=== PATIENT | male | born 1965 | race Caucasian/White ===

== ENCOUNTER 2018-08-04 20:10 | Emergency (ER) | payer OTHER ==
--- NOTE | 2018-08-04 20:51 | EDM.PDOC ---
ED HPI GENERAL MEDICAL PROBLEM - General Chief Complaint: Cardiovascular Problem Stated Complaint: IRREGULAR HEARTBEAT/ANXIETY Time Seen by Provider: 08/04/18 20:40 Source of Information: Reports: Patient History Limitations: Reports: No Limitations - History of Present Illness INITIAL COMMENTS - FREE TEXT/NARRATIVE: 52-year-old male with an irregular heartbeat for the past 2 hours. Symptoms started after his evening meal. He had a similar episode Thursday, on Thursday morning when he woke he was fine and all day yesterday and today he had no symptoms. He has not seen a doctor in over 2 years. He was hospitalized 3 years ago in [place] with what sounds like atrial fibrillation but did not receive cardioversion, was discharged on a medication that another doctor later stopped. He later wore a Holter monitor for 3 days which was normal and had an echocardiogram which he was also told was fine. He has no chest pain or shortness of breath, just an uncomfortable feeling of palpitations and irregular heartbeat. He did get winded when active on Thursday when he was having palpitations, but no symptoms yesterday. He is on no medications, does not drink alcohol and is on no [id number] medications, no extra coffee. Onset: Sudden Duration: Hour(s): Associated Symptoms: Reports: Shortness of Breath (With activity while having palpitations 2 days ago) - Related Data Allergies Allergy/AdvReac Type Severity Reaction Status Date / Time No Known Allergies Allergy Verified 08/04/18 20:28 Home Meds: Home Meds NK [No Known Home Meds] 08/04/18 [History] Past Medical History Musculoskeletal History: Reports: Fracture - Past Surgical History GI Surgical History: Reports: Appendectomy Social & Family History - Caffeine Use Caffeine Use: Reports: Coffee - Recreational Drug Use Recreational Drug Use: No ED ROS GENERAL - Review of Systems Review Of Systems: See Below Constitutional: Denies: Fever, Chills HEENT: Reports: No Symptoms Respiratory: Reports: Shortness of Breath (With activity) Cardiovascular: Reports: Palpitations. Denies: Chest Pain GI/Abdominal: Denies: Abdominal Pain, Nausea, Vomiting : Reports: No Symptoms Musculoskeletal: Reports: No Symptoms Skin: Reports: No Symptoms Neurological: Reports: No Symptoms Psychiatric: Reports: No Symptoms ED EXAM, GENERAL - Physical Exam Exam: See Below Exam Limited By: No Limitations General Appearance: Alert, No Apparent Distress Eye Exam: Bilateral Eye: Normal Inspection Head: Atraumatic Respiratory/Chest: No Respiratory Distress, Lungs Clear Cardiovascular: No Murmur, Irregularly Irregular GI/Abdominal: Soft, Non-Tender Extremities: Normal Inspection. No: Pedal Edema Neurological: Alert, Oriented Psychiatric: Normal Affect, Normal Mood Skin Exam: Warm, Dry EKG INTERPRETATION EKG Date: 08/04/18 Rhythm: A-Fib Rate (Beats/Min): 94 ST-T: Normal Course - Vital Signs Last Recorded V/S: Last Vital Signs Temp 97.7 F 08/04/18 20:36 Pulse 79 08/04/18 21:56 Resp 9 L 08/04/18 21:56 BP 137/91 H 08/04/18 21:56 Pulse Ox 96 08/04/18 21:56 - Orders/Labs/Meds Orders: Active Orders 24 hr Category Date Time Status EKG Documentation Completion [RC] ASDIRECTED Care 08/04/18 22:23 Active EKG 12 Lead [EK] Routine Ther 08/04/18 22:23 Ordered Labs: Laboratory Tests 08/04/18 08/04/18 Range/Units 21:15 21:15 WBC 12.1 H (4.5-11.0) K/uL RBC 5.24 (4.30-5.90) M/uL Hgb 16.2 H (12.0-15.0) g/dL Hct 46.9 (40.0-54.0) % MCV 90 (80-98) fL MCH 31 (27-31) pg MCHC 35 (32-36) % Plt Count 196 (150-400) K/uL Neut % (Auto) 67 H (36-66) % Lymph % (Auto) 23 L (24-44) % Gilchrist % (Auto) 10 H (2-6) % Eos % (Auto) 0 L (2-4) % Baso % (Auto) 0 (0-1) % Sodium 142 (140-148) mmol/L Potassium 3.9 (3.6-5.2) mmol/L Chloride 107 (100-108) mmol/L Carbon Dioxide 23 (21-32) mmol/L Anion Gap 12.0 (5.0-14.0) mmol/L BUN 21 H (7-18) mg/dL Creatinine 1.0 (0.8-1.3) mg/dL Est Cr Clr Drug Dosing 94.13 mL/min Estimated GFR (MDRD) > 60 (>60) Glucose 122 H (74-106) mg/dL Calcium 9.3 (8.5-10.1) mg/dL Total Bilirubin 0.4 (0.2-1.0) mg/dL AST 25 (15-37) U/L ALT 49 (12-78) U/L Alkaline Phosphatase 66 (46-116) U/L Troponin I < 0.017 (0.000-0.056) ng/mL Total Protein 7.2 (6.4-8.2) g/dL Albumin 3.7 (3.4-5.0) g/dL Globulin 3.5 (2.3-3.5) g/dL Albumin/Globulin Ratio 1.1 L (1.2-2.2) Meds: Medications Discontinued Medications Generic Name Dose Route Start Last Admin Trade Name Freq PRN Reason Stop Dose Admin Diltiazem HCl 180 mg 08/04/18 20:58 08/04/18 21:15 Cardizem Cd PO 08/04/18 20:59 180 mg ONETIME ONE Administration - Re-Assessments/Exams Free Text/Narrative Re-Assessment/Exam: 08/04/18 22:09 Patient was monitored for an hour and a half, given 180 mg of oral Cardizem, a CBC CMP and troponin were obtained. We were able to locate his discharge summary from his hospitalization in 2014 when he had atrial fibrillation. This did confirm a normal echocardiogram, however he was discharged apparently still in atrial fibrillation but his follow-up visit he was in sinus rhythm. His labs were reassuring, troponin was negative. He will recheck tomorrow morning between 8 and 9:00 to see if he converts to normal sinus rhythm. Departure - Departure Time of Disposition: 22:24 Disposition: Home, Self-Care 01 Condition: Good Clinical Impression: Atrial fibrillation Qualifiers: Atrial fibrillation type: paroxysmal Qualified Code(s): I48.0 - Paroxysmal atrial fibrillation Instructions: Atrial Fibrillation, [id number] Referrals: PCP,None [Primary Care Provider] - Forms: ED Department Discharge Care Plan Goals: Return tomorrow morning around 8:00 to recheck your heart rhythm. You can return sooner if worsening such as increased pain or shortness of breath. - My Orders Last 24 Hours: My Active Orders 08/04/18 22:23 EKG Documentation Completion [RC] ASDIRECTED EKG 12 Lead [EK] Routine - Assessment/Plan Last 24 Hours: My Active Orders 08/04/18 22:23 EKG Documentation Completion [RC] ASDIRECTED EKG 12 Lead [EK] Routine
[2018-08-04] MEDS: Diltiazem 180 MG Cap.CD PO ONE (21:15)
== END 2018-08-04 22:26 | disposition home or self-care (01) ==
LOC: JP.ED 20:10
DX: I48.0 Paroxysmal atrial fibrillation (principal); Z90.49 Acquired absence of other specified parts of digestive tract
CPT/HCPCS: 36415; 80053; 84484; 85025; 93005; 99285; A9270

== ENCOUNTER 2018-08-05 08:24 | Emergency (ER) | payer OTHER ==
--- NOTE | 2018-08-05 10:04 | EDM.PDOC ---
ED HPI GENERAL MEDICAL PROBLEM - General Chief Complaint: Cardiovascular Problem Stated Complaint: RECHECK A-FIB Time Seen by Provider: 08/05/18 09:58 Source of Information: Reports: Patient History Limitations: Reports: No Limitations - History of Present Illness INITIAL COMMENTS - FREE TEXT/NARRATIVE: pt returns for a recheck and has persistent atrial fib. He took cardizem and did not convert. He has had no chest pain or distress. His rate has been fairly good according to the pt. Onset: Other ( started yesterday. ) Duration: Hour(s): Location: Reports: Chest Associated Symptoms: Reports: No Other Symptoms, Other (pt still feels that his rhythm is irregular. ) - Related Data Allergies Allergy/AdvReac Type Severity Reaction Status Date / Time No Known Allergies Allergy Verified 08/05/18 09:14 Home Meds: Home Meds NK [No Known Home Meds] 08/04/18 [History] Past Medical History Cardiovascular History: Reports: Arrhythmia Respiratory History: Reports: Other (See Below) Other Respiratory History: bacterial lung from working in [place] Gastrointestinal History: Reports: None Musculoskeletal History: Reports: Fracture Endocrine/Metabolic History: Reports: Obesity/BMI 30+ - Infectious Disease History Infectious Disease History: Reports: Chicken Pox - Past Surgical History Head Surgeries/Procedures: Reports: None Cardiovascular Surgical History: Reports: None Respiratory Surgical History: Reports: None GI Surgical History: Reports: Appendectomy Endocrine Surgical History: Reports: None Musculoskeletal Surgical History: Reports: None Social & Family History - Tobacco Use Smoking Status *Q: Former Smoker Used Tobacco, but Quit: Yes Month/Year Tobacco Last Used: 2013 Second Hand Smoke Exposure: No - Caffeine Use Caffeine Use: Reports: Coffee - Recreational Drug Use Recreational Drug Use: No ED ROS GENERAL - Review of Systems Review Of Systems: See Below Constitutional: Reports: No Symptoms HEENT: Reports: No Symptoms Respiratory: Reports: No Symptoms Cardiovascular: Reports: Palpitations Endocrine: Reports: No Symptoms GI/Abdominal: Reports: No Symptoms : Reports: No Symptoms Musculoskeletal: Reports: No Symptoms Skin: Reports: No Symptoms Neurological: Reports: No Symptoms ED EXAM, GENERAL - Physical Exam Exam: See Below Free Text/Narrative:: pt arrived with a irregular rhythm--atrial fib which is persistent. He is comfortable and vitals are good. Exam Limited By: No Limitations General Appearance: Alert, No Apparent Distress Ears: Normal TMs Nose: Normal Inspection Throat/Mouth: Normal Inspection Head: Atraumatic Neck: Normal Inspection Respiratory/Chest: No Respiratory Distress Cardiovascular: Irregularly Irregular, Other (pt is in persistent atrial fib. ) GI/Abdominal: Soft, Non-Tender (Male) Exam: Deferred Rectal (Males) Exam: Deferred Back Exam: Normal Inspection Extremities: Normal Inspection Neurological: Alert, Oriented Psychiatric: Normal Affect Course - Vital Signs Last Recorded V/S: Last Vital Signs Temp 35.1 C L 08/05/18 09:14 Pulse 76 08/05/18 11:33 Resp 14 08/05/18 11:33 BP 138/87 08/05/18 11:33 Pulse Ox 97 08/05/18 11:33 - Orders/Labs/Meds Orders: Active Orders 24 hr Category Date Time Status EKG Documentation Completion [RC] ASDIRECTED Care 08/05/18 09:24 Active Nicotine [Habitrol] Med 08/05/18 13:11 Once 21 mg TRDERM ONETIME ONE EKG 12 Lead [EK] Routine Ther 08/05/18 09:24 Ordered Meds: Medications Discontinued Medications Generic Name Dose Route Start Last Admin Trade Name Jerardo PRN Reason Stop Dose Admin Propofol Confirm 08/05/18 12:11 Diprivan 20 Ml Administered 08/05/18 12:12 Dose 200 mg .ROUTE .STK-MED ONE - Re-Assessments/Exams Free Text/Narrative Re-Assessment/Exam: 08/05/18 10:06 ekg shows a persistent atrial fib. 08/05/18 13:09 Dr Becker tried to cardiovert him twice and it did convert briefly but then went back into a atrial fib. Departure - Departure Time of Disposition: 13:12 Disposition: Home, Self-Care 01 Condition: Fair Clinical Impression: Atrial fibrillation Qualifiers: Atrial fibrillation type: paroxysmal Qualified Code(s): I48.0 - Paroxysmal atrial fibrillation Referrals: PCP,None [Primary Care Provider] - Forms: ED Department Discharge Care Plan [facility]als[facility] [place] [facility] a [facility], asa 81 mg daily, cardiozem 120mg CD 1 tab daily, rtc if any problems. - My Orders Last 24 Hours: My Active Orders 08/05/18 09:24 EKG Documentation Completion [RC] ASDIRECTED EKG 12 Lead [EK] Routine 08/05/18 13:11 Nicotine [Habitrol] 21 mg TRDERM ONETIME ONE - Assessment/Plan Last 24 Hours: My Active Orders 08/05/18 09:24 EKG Documentation Completion [RC] ASDIRECTED EKG 12 Lead [EK] Routine 08/05/18 13:11 Nicotine [Habitrol] 21 mg TRDERM ONETIME ONE
[2018-08-05] MEDS ORDERED: Propofol 200 MG/20 ML SDV ONE (12:11)
--- NOTE | 2018-08-05 12:41 | PCM.CONS ---
H&P History of Present Illness - General Date of Service: 08/05/18 Source of Information: Patient, Provider, RN Notes Reviewed History Limitations: Reports: No Limitations - History of Present Illness Initial Comments - Free Text/Narative: Mr. Pham is a 52-year-old gentleman who I been asked to see by Dr. Albarran for recommendations concerning evaluation and management of atrial fibrillation. He presented to the emergency department last night with atrial fibrillation and rapid ventricular response. He has had a previous episode of atrial fibrillation occurring approximately 3 years ago that converted spontaneously. Since then he estimates that he is had 5-6 episodes that occurred over the past 3 years all of which have resolved spontaneously within 24 hours. 2 days prior to presenting to the emergency department he had an episode of irregular heart rhythm that lasted approximately 16 hours and resolved spontaneously. He noted onset of recurrent irregular rhythm last night and presented to the emergency department for further evaluation. Heart rate was in the low 100s to 90s. He was tolerating it fairly well but had eaten supper and was not a candidate for cardioversion at that time. He was given 1 dose of diltiazem CD 120 mg and discharged home. He was instructed to come back to the emergency department this morning having been nothing by mouth since midnight. Labs reviewed from initial evaluation last night and are within desired range. EKGs were reviewed and show evidence of atrial fibrillation with controlled ventricular response from this morning. We discussed options for management including conservative management with rate control and possible anticoagulation versus electrical cardioversion. He decided to proceed with cardioversion. After adequate sedation was achieved 2 attempts at cardioversion were performed initially using 200 J of energy and the second using 300 J of energy, both in synchronized mode. Each attempt was successful in transient conversion to sinus rhythm but he quickly went back into atrial fibrillation after each attempt. - Related Data Allergies/Adverse Reactions: Allergies Allergy/AdvReac Type Severity Reaction Status Date / Time No Known Allergies Allergy Verified 08/05/18 09:14 Home Medications: Home Meds NK [No Known Home Meds] 08/04/18 [History] Past Medical History Cardiovascular History: Reports: Arrhythmia Respiratory History: Reports: Other (See Below) Other Respiratory History: bacterial lung from working in [place] Gastrointestinal History: Reports: None Musculoskeletal History: Reports: Fracture Endocrine/Metabolic History: Reports: Obesity/BMI 30+ - Infectious Disease History Infectious Disease History: Reports: Chicken Pox - Past Surgical History Head Surgeries/Procedures: Reports: None Cardiovascular Surgical History: Reports: None Respiratory Surgical History: Reports: None GI Surgical History: Reports: Appendectomy Endocrine Surgical History: Reports: None Musculoskeletal Surgical History: Reports: None Social & Family History - Tobacco Use Smoking Status *Q: Former Smoker Used Tobacco, but Quit: Yes Month/Year Tobacco Last Used: 2013 Second Hand Smoke Exposure: No - Caffeine Use Caffeine Use: Reports: Coffee - Recreational Drug Use Recreational Drug Use: No H&P Review of Systems - Review of Systems: Review Of Systems: See Below General: Denies: Fever, Chills, Weakness Pulmonary: Reports: No Symptoms Cardiovascular: Reports: Palpitations, Lightheadedness. Denies: Chest Pain, Dyspnea on Exertion, Orthopnea, PND, Edema, Syncope Gastrointestinal: Reports: No Symptoms Musculoskeletal: Reports: No Symptoms Exam - Exam Exam: See Below - Vital Signs Vital Signs: Last Vital Signs Temp 95.2 F L 08/05/18 09:14 Pulse 76 08/05/18 11:33 Resp 14 08/05/18 11:33 BP 138/87 08/05/18 11:33 Pulse Ox 97 08/05/18 11:33 Weight: 233 lb 11.04 oz - Exam General: Alert, Oriented, Cooperative, Mild Distress Neck: Supple, Trachea Midline, +2 Carotid Pulse wo Bruit Lungs: Clear to Auscultation, Normal Respiratory Effort Cardiovascular: Regular Rate, Normal S1, Normal S2, Irregular Rhythm. No: Systolic Murmur, Diastolic Murmur GI/Abdominal Exam: Soft, Non-Tender, No Organomegaly, No Distention Extremities: Non-Tender, No Pedal Edema Consult PN Assessment/Plan Problem List Initiated/Reviewed/Updated: Yes Plan: ASSESSMENT AND RECOMMENDATIONS ATRIAL FIBRILLATION-first episode occurred approximately 3 years ago, with brief hospitalization and spontaneous conversion to sinus rhythm. Since then he' s experienced 5-6 episodes that all have converted spontaneously and lasted less than 24 hours. Most recent episode prior to this one was 2 days ago and resolved spontaneously after approximately 16 hours. He presented to the emergency department last night with atrial fibrillation and rapid ventricular response, heart rates in the low 100s. He had had his evening meal and was not felt to be a candidate for cardioversion at that time. He was given oral dose of diltiazem CD 120 mg and discharged home. Heart rate is under better control at this point in the 70s and 80s but remains in atrial fibrillation. He has had nothing to eat since midnight and after discussion of options agreed to proceed with attempted electrical cardioversion. 2 attempts were made at cardioversion which were both unsuccessful for sustained conversion to sinus rhythm. His [id number] score is 1. -Hold on anticoagulation because of [id number] score of 1 -Aspirin 81 mg by mouth daily -Continue diltiazem CD 120 mg by mouth daily -Outpatient cardiology appointment in [place], [place] HYPERTENSION-pressure consistently elevated during both emergency room visits -Long acting diltiazem as above Requesting Provider: Yadiel Date Consult Requested: 08/05/18 Reason for Consult: Paroxysmal atrial fibrillation Patient History Reviewed: Yes Notified Requestor: Yes
[2018-08-05] MEDS ORDERED: Nicotine 21 MG/24 Hr Patch TRDERM ONE (13:11)
--- NOTE | 2018-08-05 13:40 | PCM.OPNOTE ---
- General Post-Op/Procedure Note Date of Surgery/Procedure: 08/05/18 Operative Procedure(s): Elective electrical cardioversion Pre Op Diagnosis: Atrial fibrillation with rapid ventricular response Post-Op Diagnosis: Same Anesthesia Technique: Moderate Sedation Primary Surgeon: Zeyad Becker Anesthesia Provider: Zeyad Collins Complications: None Condition: Good Free Text/Narrative:: Mr. Pham is a 52-year-old gentleman who presented to the emergency department last night with atrial fibrillation and rapid ventricular response. He has had a previous episode of atrial fibrillation occurring approximately 3 years ago that converted spontaneously. Since then he estimates that he is had 5-6 episodes that occurred over the past 3 years all of which have resolved spontaneously within 24 hours. 2 days prior to presenting to the emergency department he had an episode of irregular heart rhythm that lasted approximately 16 hours and resolved spontaneously. He noted onset of recurrent irregular rhythm last night and presented to the emergency department for further evaluation. Heart rate was in the low 100s to 90s. He was tolerating it fairly well but had eaten supper and was not a candidate for cardioversion at that time. He was instructed to come back to the emergency department this morning having been nothing by mouth since midnight. Labs reviewed from initial evaluation last night and are within desired range. We discussed options for management including conservative management with rate control and possible anticoagulation. He has decided to proceed with electrical cardioversion, risks and goals of this procedure were reviewed with him. After adequate sedation was achieved and provided by anesthesia service. Initial attempt at cardioversion was made using 200 J of energy delivered in a synchronized fashion. He did have a few beats of sinus rhythm but quickly went back into atrial fibrillation. A second attempted cardioversion was made using 300 J of energy again synchronized, this was transiently successful in conversion to sinus rhythm with a few beats of sinus rhythm noted again before he went back into atrial fibrillation. Procedure was terminated this point and he was recovered in the emergency department from his IV sedation.
== END 2018-08-05 13:30 | disposition home or self-care (01) ==
LOC: JP.ED 08:24
DX: I48.0 Paroxysmal atrial fibrillation (principal); Z87.891 Personal history of nicotine dependence
CPT/HCPCS: 92960; 93005; 99285; J2704; 93010

== ENCOUNTER 2018-08-08 22:29 | Emergency (ER) | payer OTHER ==
--- NOTE | 2018-08-09 01:26 | EDM.PDOC ---
ED HPI GENERAL MEDICAL PROBLEM - General Chief Complaint: General Stated Complaint: LIGHT HEADED SOMEWHAT DIZZY Time Seen by Provider: 08/08/18 23:32 Source of Information: Reports: Patient History Limitations: Reports: No Limitations - History of Present Illness INITIAL COMMENTS - FREE TEXT/NARRATIVE: This patient comes in for feeling weak and a little bit dizzy and off balance. Denies any vertigo denies near syncope. No nausea he is able to walk okay he was sitting that a few days ago in our ER for an episode of atrial fibrillation. He was put on extended release diltiazem and discharged. He was brought back the following day for recheck he was still in atrial fibrillation he under went an elective cardioversion. He was easily converted but then relapsed into atrial fibrillation both times. The FADIA-Vasc assessment score was 1 so he was sent home without anticoagulation and plans are him to follow- up with cardiology. He continues to take diltiazem ER 120 mg daily. denies pain Pain Score (Numeric/FACES): 0 - Related Data Allergies Allergy/AdvReac Type Severity Reaction Status Date / Time No Known Allergies Allergy Verified 08/08/18 22:52 Home Meds: Home Meds Diltiazem HCl [Cartia Xt] 120 mg PO DAILY 08/08/18 [History] Past Medical History Cardiovascular History: Reports: Arrhythmia Respiratory History: Reports: Other (See Below) Other Respiratory History: bacterial lung from working in [place] Gastrointestinal History: Reports: None Musculoskeletal History: Reports: Fracture Endocrine/Metabolic History: Reports: Obesity/BMI 30+ - Infectious Disease History Infectious Disease History: Reports: Chicken Pox - Past Surgical History Head Surgeries/Procedures: Reports: None GI Surgical History: Reports: Appendectomy Social & Family History - Tobacco Use Smoking Status *Q: Former Smoker Used Tobacco, but Quit: Yes Month/Year Tobacco Last Used: 2004 - Caffeine Use Caffeine Use: Reports: Coffee - Recreational Drug Use Recreational Drug Use: No ED ROS GENERAL - Review of Systems Review Of Systems: See Below Constitutional: Reports: Weakness HEENT: Reports: No Symptoms Respiratory: Reports: No Symptoms Cardiovascular: Denies: Chest Pain, Blood Pressure Problem, Dyspnea on Exertion , Palpitations Endocrine: Reports: No Symptoms GI/Abdominal: Reports: No Symptoms : Reports: No Symptoms Musculoskeletal: Reports: No Symptoms Skin: Reports: No Symptoms Neurological: Reports: No Symptoms Psychiatric: Reports: No Symptoms Hematologic/Lymphatic: Reports: No Symptoms ED EXAM, GENERAL - Physical Exam Exam: See Below Exam Limited By: No Limitations General Appearance: Alert, WD/WN, No Apparent Distress Eye Exam: Bilateral Eye: Normal Inspection Nose: Normal Inspection Throat/Mouth: Normal Oropharynx Head: Atraumatic Neck: Normal Inspection Respiratory/Chest: No Respiratory Distress Cardiovascular: Normal Peripheral Pulses, Regular Rate, Rhythm, Bradycardia GI/Abdominal: Soft, Non-Tender Back Exam: Normal Inspection Extremities: Normal Inspection Neurological: Alert, Oriented Course - Vital Signs Last Recorded V/S: Last Vital Signs Temp 36.0 C 08/08/18 22:55 Pulse 59 L 08/08/18 22:55 Resp 14 08/08/18 22:55 BP 148/105 H 08/08/18 22:55 Pulse Ox 98 08/08/18 22:55 - Orders/Labs/Meds Orders: Active Orders 24 hr Category Date Time Status EKG Documentation Completion [RC] ASDIRECTED Care 08/08/18 23:44 Active EKG 12 Lead [EK] Urgent Ther 08/08/18 23:44 Ordered Labs: Laboratory Tests 08/09/18 08/09/18 Range/Units 00:29 00:29 WBC 10.9 (4.5-11.0) K/uL RBC 4.92 (4.30-5.90) M/uL Hgb 15.4 H (12.0-15.0) g/dL Hct 44.3 (40.0-54.0) % MCV 90 (80-98) fL MCH 31 (27-31) pg MCHC 35 (32-36) % Plt Count 191 (150-400) K/uL Neut % (Auto) 57 (36-66) % Lymph % (Auto) 31 (24-44) % Sutton % (Auto) 11 H (2-6) % Eos % (Auto) 1 L (2-4) % Baso % (Auto) 0 (0-1) % Sodium 139 L (140-148) mmol/L Potassium 4.0 (3.6-5.2) mmol/L Chloride 104 (100-108) mmol/L Carbon Dioxide 24 (21-32) mmol/L Anion Gap 15.0 H (5.0-14.0) mmol/L BUN 18 (7-18) mg/dL Creatinine 0.8 (0.8-1.3) mg/dL Est Cr Clr Drug Dosing 106.88 mL/min Estimated GFR (MDRD) > 60 (>60) Glucose 97 (74-106) mg/dL Calcium 9.3 (8.5-10.1) mg/dL Troponin I < 0.017 (0.000-0.056) ng/mL - Re-Assessments/Exams Free Text/Narrative Re-Assessment/Exam: 08/09/18 07:19 EKG shows sinus bradycardia at 52 bpm otherwise normal QRS normal ST and T waves. Monitor shows sinus bradycardia as low as 48 bpm Labs were reviewed on this patient nothing that indicates any type of major cardiac event. The problem appears to be due just from overmedication causing her bradycardia. Plan will be to switch to a lower dose Cardizem tomorrow 60 mg daily family can follow up with gas and oil checker Departure - Departure Time of Disposition: 01:23 Disposition: Home, Self-Care 01 Condition: Fair Clinical Impression: Sinus bradycardia - Discharge Information Instructions: Bradycardia, Adult Referrals: PCP,None [Primary Care Provider] - Forms: ED Department Discharge Additional Instructions: Decrease diltiazem ER from 120 mg down to 60 mg daily. Your heart rate is in the 48-50 beats per minute range right now. That's too low for you. That will make you dizzy and weak. 60 mg per day should allow your heart rate to be in the 70-90 range and that would be about right. Follow-up with a gas and oil checker as planned. It would be a good idea to have a regular family doctor also. - My Orders Last 24 Hours: My Active Orders 08/08/18 23:44 EKG Documentation Completion [RC] ASDIRECTED EKG 12 Lead [EK] Urgent - Assessment/Plan Last 24 Hours: My Active Orders 08/08/18 23:44 EKG Documentation Completion [RC] ASDIRECTED EKG 12 Lead [EK] Urgent
== END 2018-08-09 01:35 | disposition home or self-care (01) ==
LOC: JP.ED 22:29
DX: R00.1 Bradycardia, unspecified (principal); Z79.899 Other long term (current) drug therapy; Z87.891 Personal history of nicotine dependence
CPT/HCPCS: 36415; 80048; 84484; 85025; 93005; 93010; 99284-25